=== PATIENT | male | born 1985 | race Caucasian/White ===

== ENCOUNTER 2017-04-16 12:52 | Emergency (ER) | payer OTHER ==
[~2017-04-16] VITALS: Ht 172.7 cm; Wt 76.4 kg
[2017-04-16] MEDS ORDERED: CELE1CAP4 PO (13:00)
[2017-04-16] MEDS ORDERED: NS 1,000 ML IV ONE (13:15)
[2017-04-16] MEDS ORDERED: KETOROLAC 30 MG/ML VIAL (J1885) IV ONE (13:15)
[2017-04-16] MEDS ORDERED: ONDANSETRON 4MG/2ML VIAL (J2405) IV ONE (13:15)
[2017-04-16 13:25] LABS: BASO % 0.1 % (0.0-1.0); EOS # 0.1 K/mm3 (0.0-0.50); EOS % 0.6 % (0.0-3.0); LARGE UNSTAINED CELL # 0.1 K/mm3 (0.0-0.4); LARGE UNSTAINED CELL % 0.5 % (0.0-4.0); LYMPH % 5.2 % (24.0-44.0); MEAN CORPUSCULAR HGB CONC 34.3 g/dl (32.0-36.5); MEAN CORPUSCULAR VOLUME 90.4 fl (80.0-96.0); MONO # 0.4 K/mm3 (0.0-0.8); MONO % 2.4 % (0.0-5.0); NEUTROPHILS # 15.2 K/mm3 (1.8-7.7); NEUTROPHILS % 91.2 % (36.0-66.0); PLATELET COUNT, AUTOMATED 278 k/mm3 (150-450); RED CELL DISTRIBUTION WIDTH 12.8 % (11.5-14.5); WHITE BLOOD COUNT 16.7 K/mm3 (4.0-10.0)
[2017-04-16 13:29] LABS: INR 0.96
[2017-04-16 13:53] LABS: ALBUMIN 4.6 GM/DL (3.2-5.2); ALBUMIN/GLOBULIN RATIO 1.39 (1.00-1.93); ALKALINE PHOSPHATASE 112 U/L (45-117); ALT/SGPT 60 U/L (12-78); ANION GAP 11 MEQ/L (8-16); AST/SGOT 21 U/L (15-37); BILIRUBIN,DIRECT 0.2 MG/DL (0.0-0.2); BILIRUBIN,TOTAL 0.7 MG/DL (0.2-1.0); BLOOD UREA NITROGEN 14 MG/DL (7-18); CALCIUM LEVEL 9.4 MG/DL (8.5-10.1); CARBON DIOXIDE LEVEL 24 MEQ/L (21-32); CHLORIDE LEVEL 105 MEQ/L (98-107); GLOMERULAR FILTRATION RATE > 60.0 (>60); GLUCOSE, FASTING 113 MG/DL (70-105); POTASSIUM SERUM 4.4 MEQ/L (3.5-5.1); SODIUM LEVEL 140 MEQ/L (136-145); TOTAL PROTEIN 7.9 GM/DL (6.4-8.2)
--- NOTE | 2017-04-16 14:37 | REP ---
REASON: Left-sided abdominal pain. The lack of intravenous contrast decreases the sensitivity of the exam. There is mild left-sided hydronephrosis and hydroureter secondary to a 6 mm size calcification in the distal left ureter. There is periureteral edema. And mild perinephric stranding. The liver, gallbladder, spleen, pancreas, adrenal glands and right kidney are unremarkable. The abdominal aorta and para-aortic regions are unremarkable. The bowel loops and their mesenteries are within normal limits. No free fluid or free air is seen in the abdomen or pelvis. There are no urinary bladder calcifications. There are bilateral pelvic phleboliths. There is no evidence on an intra-abdominal or intrapelvic mass or adenopathy. Bone window technique through the examination shows no gross skeletal abnormalities. IMPRESSION: Distal left ureterolith with resultant findings as described above. Signed by Peyman Cali DO 04/16/2017 03:13 P
[2017-04-16] MEDS ORDERED: NORCOTAB PO (14:53)
[2017-04-16] MEDS ORDERED: ZOFR4TAB3 PO (14:53)
[2017-04-16 15:08] VITALS: BP 128/71
== END 2017-04-16 15:11 | disposition home or self-care (01) ==
LOC: M ED 12:52
DX: N20.1 Calculus of ureter (principal); F17.210 Nicotine dependence, cigarettes, uncomplicated; Z79.899 Other long term (current) drug therapy
CPT/HCPCS: 74176; 80048; 80076; 83690; 85025; 85610; 96361; 96374; 96375; 99283; J1885; J2405